=== PATIENT | male | born 1965 | race Caucasian/White ===

== ENCOUNTER 2021-10-10 15:21 | Outpatient (CLI) | payer BC, SELFPAY ==
--- NOTE | 2021-10-10 15:29 | MR_ITS ---
WS: [id number] MRI LEFT KNEE NONCONTRAST TECHNIQUE: Axial PD, coronal PD fat sat, coronal PD, sagittal PD, and sagittal PD fat-sat images obta ined. CLINICAL INFORMATION: LATERAL MENISCUS TEAR, ACUTE COMPARISON: None. FINDINGS: Distal quadriceps and patella tendons are intact. Hypertrophic patella. Normal ACL and PCL. Advanced narrowing of the medial joint compartment. Moderate narrowing of the lateral joint compartment. Small amount of subchondral edema in the medial tibial plateau. Hypertrophic changes along the joint line. Blunting of the medial meniscus with slight peripheral extrusion. Chronic appearing medial meniscal tear with fluid signal abnormality. Small horizontal tear involving the posterior horn medial meniscu s. Mild chronic thinning of the lateral meniscus. No acute appearing lateral meniscal tears. 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 Moderate chondromalacia patella. No subchondral edema. Normal popliteal fossa. Medial and lateral col lateral ligaments are intact. MR/MR knee LT wo con* [id number] IMPRESSION: 1. Normal ACL and PCL. 2. Advanced joint space narrowing medial joint compartment with blunting of th e medial meniscus with fluid signal abnormality. Slight peripheral extrusion. A dvanced chondromalacia with a small amount of subchondral edema. 3. Chronic appearing thinning of the lateral meniscus. No acute appearing late ral meniscal tears. 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 4. Medial and lateral collateral ligaments appear intact. 5. Hypertrophic patella with moderate chondromalacia patella. 6. Small joint effusion. Outbridge grading: grade III: partial-thickness cartilage loss with focal ulcer ation
== END 2021-10-10 15:22 | disposition home or self-care (01) ==
LOC: RAD 15:26
PROVIDERS: Visit Provider Orthopaedic Surgery
DX: S83.282A Other tear of lateral meniscus, current injury, left knee, initial encounter (principal); X58.XXXA Exposure to other specified factors, initial encounter; M25.462 Effusion, left knee; M22.42 Chondromalacia patellae, left knee; R60.0 Localized edema
CPT/HCPCS: 73721

== ENCOUNTER 2022-04-16 17:07 | Emergency (ER) | payer BC, SELFPAY ==
[2022-04-16 17:13] VITALS: BP 171/87; PULSE 69; RESP 16; TEMP 36.5; O2SAT 98; BMI 27.6
--- NOTE | 2022-04-16 17:19 | ECG_ITS ---
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 Measurements Intervals [place] Rate: 61 P: 62 TX: 239 QRS: 5 QRSD: 100 T: 67 QT: 401 QTc: 407 Interpretive Statements SINUS RHYTHM WITH FIRST DEGREE AV BLOCK POSSIBLE RIGHT VENTRICULAR CONDUCTION DELAY [RSR (QR) IN V1/V2] MODERATE ST DEPRESSION [0.05+ mV ST DEPRESSION] INTERPRETATION BASED ON A DEFAULT AGE OF 40 YEARS No previous ECG available for comparison Electronically Signed On 04-17-2022 16:28:01 CDT by Chong Raya M.D. [email or web address] health centerYo-Fi Wellnessgrand [email or web address].[email or web address]/store/[id number] f
[2022-04-16 17:39] LABS: Basophils # 0.1 10^3/uL (0.0-0.1); Basophils % 0.9 %; Hematocrit 40.1 % (42.0-52.0); Hemoglobin 13.2 g/dL (11.7-16.6); Lymphocytes # 2.1 10^3/uL (0.8-4.8); Lymphocytes % 30.8 %; Mean Corpuscular HGB Conc 32.9 g/dL (30.0-36.0); Mean Corpuscular Hemoglobin 28.9 pg (28.0-34.0); Mean Corpuscular Volume 87.9 fl (80-94); Mean Platelet Volume 9.3 fL (7.4-10.4); Monocytes # 0.5 10^3/uL (0.2-0.9); Monocytes % 7.3 %; Neutrophils # 4.09 10^3/uL (1.8-7.7); Neutrophils % 60.9 %; Nucleated Red Blood Cells % 0 %; Platelet Count 266 10^3/cmm (130-400); Red Blood Count 4.56 10^6/uL (4.1-5.3); Red Cell Distribution Width 13.8 % (12.1-15.1); White Blood Count 6.7 10^3/uL (4.0-10.0)
[2022-04-16 17:59] LABS: Troponin(5th) Baseline 9 ng/L (0-15)
[2022-04-16 18:02] LABS: Alanine Aminotransferase 10 U/L (0-41); Albumin Level 4.4 g/dL (3.5-5.2); Alkaline Phosphatase 92 U/L (40-130); Anion Gap 12.9 (5-19); Aspartate Amino Transferase 17 U/L (0-40); Blood Urea Nitrogen 10 mg/dL (6-20); Calcium 9.4 mg/dL (8.5-10.5); Carbon Dioxide 29 mmol/L (22-29); Chloride 101 mmol/L (98-107); Globulin 2.6 g/dL (1.3-4.6); Glomerular Filtration Rate 115.8 mL/min (90-130); Glucose 81 mg/dL (65-115); Osmolality Calculated 286 mOsm/kg (285-295); Potassium 3.9 mmol/L (3.5-5.1); Sodium 139 mmol/L (136-145); Total Bilirubin 0.6 mg/dL (0.15-1.2)
--- NOTE | 2022-04-16 19:20 | ECG_ITS ---
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 Measurements Intervals [place] Rate: 57 P: 63 TN: 266 QRS: 31 QRSD: 106 T: 79 QT: 427 QTc: 417 Interpretive Statements SINUS BRADYCARDIA WITH FIRST DEGREE AV BLOCK POSSIBLE RIGHT VENTRICULAR CONDUCTION DELAY [RSR (QR) IN V1/V2] POSSIBLE LATERAL MYOCARDIAL INFARCTION , OF INDETERMINATE AGE [30 ms Q WAVE IN I/aVL/V5/V6] Compared to ECG 04/16/2022 17:19:14 Myocardial infarct finding now present Sinus rhythm no longer present ST (T wave) deviation no longer present Electronically Signed On 04-17-2022 16:33:53 CDT by Chong Raya M.D. [id number]
[2022-04-16 20:31] LABS: Troponin 5 2HR 10.72 ng/L (0-15)
[2022-04-16 21:01] LABS: Troponin 5 2HR Delta 1.72 ABS# (0-10)
[2022-04-16 21:19] VITALS: BP 150/79; PULSE 80; RESP 16
--- NOTE | 2022-04-16 21:23 | W.ED.CHESTPA ---
HPI - Chest Pain General: Chief Complaint: Chest Pain Stated Complaint: Chest pain, dizziness Time Seen by Provider: 04/16/22 21:22 History of Present Illness: 56-year-old male patient comes in today with complaints of some right-sided chest discomfort followed by nausea and dry heaves. Patient did report some mild chills today. Patient denies any diarrhea or blood in vomit or stool. Patient appears nontoxic. Patient appears in no pain at this time. Patient reports that after the episode of dry heaves his pain resolved. Associated symptoms: Reports nausea and vomiting; Deny dyspnea or fever(s) Review of Systems Const: Denies: fever(s) Card: Reports: chest pain Resp: Denies: dyspnea GI: Reports: nausea and vomiting Physical Exam Const: COMMON NORMALS: alert HENMT: COMMON NORMALS: normocephalic HEAD & SCALP: normocephalic Neck/C-Spine: COMMON NORMALS: full ROM Chest: COMMONS NORMALS: normal palpation of entire chest wall Resp: COMMON NORMALS: normal respiratory effort and clear to auscultation bilaterally AUSCULTATION: clear to auscultation bilaterally Cardio: COMMON NORMALS: regular rate and regular rhythm RATE: regular rate RHYTHM: regular rhythm GI: COMMON NORMALS: Soft to palpation and non-tender PALPATION: Yes Soft to palpation : COMMON NORMALS: Yes no CVA tenderness BLADDER/KIDNEY EXAM: Yes no CVA tenderness Back/Pelvis: COMMON NORMALS: no CVA tenderness Extremity: COMMON NORMALS: normal to inspection Neuro: SENSORIUM/ORIENTATION: Yes alert Skin: COMMON NORMALS: turgor normal GENERAL SKIN EXAM: turgor normal Course Vital Signs: Vital signs: Vital Signs Temperature 97.7 F 04/16/22 17:13 Pulse Rate 69 04/16/22 17:13 Respiratory Rate 16 04/16/22 17:13 Blood Pressure 171/87 04/16/22 17:13 Pulse Oximetry 98 04/16/22 17:13 Oxygen Delivery Pr thod 04/16/22 17:13 MDM - Chest Pain Medical Decision Making 56-year-old male patient comes in today for complaints of some right-sided chest discomfort followed by an episode of dry heaves. Patient reports improvement in the pain of his chest throughout the day. Patient denied any pain on arrival to the ER. On exam lungs were clear to auscultation. Heart rate was regular in the 70s. EKG showed a sinus rhythm. Abdomen was soft nontender. No CVA tenderness. Differential diagnosis includes gallbladder disease, ACS, gastritis, pancreatitis, GERD. CBC and CMP was unremarkable. Troponin was unchanged at 2 hours, and remained in the normal range. Probably patient had a bout of gastritis versus gastroenteritis but recommended patient follow-up with primary care for further cardiac evaluation. Heart score was 2. Lab Data : 04/16/22 17:20 04/16/22 17:20 Laboratory Results WBC 6.7 10^3/uL (4.0-10.0) 04/16/22 17:20 RBC 4.56 10^6/uL (4.1-5.3) 04/16/22 17:20 Hgb 13.2 g/dL (11.7-16.6) 04/16/22 17:20 Hct 40.1 % (42.0-52.0) L 04/16/22 17:20 MCV 87.9 fl (80-94) 04/16/22 17:20 MCH 28.9 pg (28.0-34.0) 04/16/22 17:20 MCHC 32.9 g/dL (30.0-36.0) 04/16/22 17:20 RDW 13.8 % (12.1-15.1) 04/16/22 17:20 Plt Count 266 10^3/cmm (130-400) 04/16/22 17:20 MPV 9.3 fL (7.4-10.4) 04/16/22 17:20 Neut % (Auto) 60.9 % 04/16/22 17:20 Lymph % (Auto) 30.8 % 04/16/22 17:20 [place] % (Auto) 7.3 % 04/16/22 17:20 Eos % (Auto) 0.0 % 04/16/22 17:20 Baso % (Auto) 0.9 % 04/16/22 17:20 Neut # (Auto) 4.09 10^3/uL (1.8-7.7) 04/16/22 17:20 Lymph # (Auto) 2.1 10^3/uL (0.8-4.8) 04/16/22 17:20 [place] # (Auto) 0.5 10^3/uL (0.2-0.9) 04/16/22 17:20 Eos # (Auto) 0.0 10^3/uL (0.0-0.8) 04/16/22 17:20 Baso # (Auto) 0.1 10^3/uL (0.0-0.1) 04/16/22 17:20 Nucleated RBC % (auto) 0 % 04/16/22 17:20 Nucleated RBCs # 0.0 /100WBC 04/16/22 17:20 Sodium 139 mmol/L (136-145) 04/16/22 17:20 Potassium 3.9 mmol/L (3.5-5.1) 04/16/22 17:20 Chloride 101 mmol/L (98-107) 04/16/22 17:20 Carbon Dioxide 29 mmol/L (22-29) 04/16/22 17:20 Anion Gap 12.9 (5-19) 04/16/22 17:20 BUN 10 mg/dL (6-20) 04/16/22 17:20 Creatinine 0.7 mg/dL (0.7-1.2) 04/16/22 17:20 GFR Calculation 115.8 mL/min (90-130) 04/16/22 17:20 Glucose 81 mg/dL (65-115) 04/16/22 17:20 Calculated Osmolality 286 mOsm/kg (285-295) 04/16/22 17:20 Calcium 9.4 mg/dL (8.5-10.5) 04/16/22 17:20 Total Bilirubin 0.6 mg/dL (0.15-1.2) 04/16/22 17:20 AST 17 U/L (0-40) 04/16/22 17:20 ALT 10 U/L (0-41) 04/16/22 17:20 Alkaline Phosphatase 92 U/L (40-130) 04/16/22 17:20 Troponin T Baseline 9 ng/L (0-15) 04/16/22 17:20 Troponin T 120 Minute 10.72 ng/L (0-15) 04/16/22 19:50 Delta Troponin T 1.72 ABS# (0-10) 04/16/22 19:50 Total Protein 7.0 g/dL (6.6-8.7) 04/16/22 17:20 Albumin 4.4 g/dL (3.5-5.2) 04/16/22 17:20 Globulin 2.6 g/dL (1.3-4.6) 04/16/22 17:20 Discharge Plan Discharge Patient Disposition: Home Clinical Impression: Atypical chest pain Condition: Stable Discharge Orders: Discharge ED (Routine); Ordered 04/16/22 Ordered By: Dariel Jacobs Referrals: Myriam Weiss MD [Primary Care Provider] - Discharge Diet: Usual diet Discharge Activity: Increase activity as tolerated Patient Instructions: Chest Pain (ED) Activity Restrictions/Additional Instructions: Home and rest. Drink plenty of fluids. Follow-up with primary care for further evaluation and treatment. Return to ER for worsening symptoms or new concerns. 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
[2022-04-16 21:51] VITALS: BP 150/79; PULSE 80; RESP 16
== END 2022-04-16 21:35 | disposition home or self-care (01) ==
PROVIDERS: Family Medicine; Emergency Provider Nurse Practitioner Family; PCP Family Medicine
DX: R07.89 Other chest pain (principal)
CPT/HCPCS: 36415; 80053; 84484; 85025; 93005; 99284